=== PATIENT | male | born 1995 | race Caucasian/White ===

== ENCOUNTER 2021-11-27 20:47 | Emergency (ER) | payer OTHER ==
[~2021-11-27] VITALS: Ht 187.9 cm; Wt 97.1 kg
[2021-11-27 21:50] LABS: BASO # 0.1 10*3/uL (0.0-0.1); EOS # 0.2 10*3/uL (0.0-0.4); EOS % 2.5 % (1.0-4.0); LYMPH # 2.1 10*3/uL (1.3-4.4); LYMPH % 29.2 % (27.0-41.0); MEAN CELL VOLUME 84.9 fl (80.0-94.0); MEAN CORPUSCULAR HGB 28.4 pg (27.0-31.0); MEAN CORPUSCULAR HGB CONC 33.4 g/dl (33.0-37.0); MEAN PLATELET VOLUME 9.6 fl (9.6-12.3); MONO % 13.7 % (3.0-9.0); NEUT # 3.8 10*3/uL (2.3-7.9); NEUT % 53.5 % (47.0-73.0); PLATELET COUNT AUTOMATED 279 10*3/uL (130-400); RED BLOOD COUNT 5.18 10*6/uL (4.50-5.90); RED CELL DISTRI WIDTH 12.8 % (0-14.5); WHITE BLOOD COUNT 7.1 10*3/uL (4.8-10.8)
[2021-11-27 22:10] LABS: ALKALINE PHOSPHATASE 74 U/L (45-117); BUN 9 mg/dl (7-24); CHLORIDE 102 mmol/L (98-107); CREATININE 1.09 mg/dL (0.70-1.30); LIPASE 90 U/L (73-393); SGOT/AST 75 IU/L (3-35); SGPT/ALT 82 U/L (12-78); SODIUM 138 mmol/L (136-145); TOTAL PROTEIN 7.6 gm/dL (6.4-8.2)
== END 2021-11-28 01:40 | disposition home or self-care (01) ==
LOC: ED 20:47
PROVIDERS: Internal Medicine
DX: K76.0 Fatty (change of) liver, not elsewhere classified (principal); R11.2 Nausea with vomiting, unspecified; R79.89 Other specified abnormal findings of blood chemistry; R10.10 Upper abdominal pain, unspecified